=== PATIENT | female | born 1965 | race Two or more races ===

== ENCOUNTER 2019-12-30 14:24 | Emergency (ER) | payer MEDICAID, OTHER ==
[~2019-12-30] VITALS: Ht 162.6 cm; Wt 102.1 kg
[~2019-12-30 14:24] MED LIST: ZITROMAX
[2019-12-30 15:07] LABS: Basophils # (auto) 0 10 ^3/uL (0-0.2); Basophils % (auto) 0.5 % (0.0-2.0); Eosinophils # (auto) 0.1 10 ^3/uL (0-0.8); Eosinophils % (auto) 1.2 % (0.0-7.0); Hematocrit 42.3 % (36.0-46.0); Hemoglobin 14.4 g/dL (12.2-16.2); Lymphocytes # (auto) 1.4 10 ^3/uL (0.4-5.4); Lymphocytes % (auto) 21.1 % (10.0-50.0); Mean Corpuscular Hemoglobin 32.1 pg (28.0-32.0); Mean Corpuscular Volume 94.4 fL (80.0-100.0); Monocytes # (auto) 0.4 10 ^3/uL (0-1.3); Monocytes % (auto) 5.8 % (0.0-12.0); Neutrophils # (auto) 4.9 10 ^3/uL (1.6-8.6); Neutrophils % (auto) 71.4 % (37.0-80.0); Nucleated Red Blood Cells % 0.1 %; Platelet Count (auto) 243 10^3/uL (140-450); Red Blood Cells 4.48 10^6/uL (4.0-5.20); Red Cell Distribution Width 13.2 % (11.8-14.3); White Blood Cell 6.8 10^3/uL (4.4-10.8)
[2019-12-30 15:25] LABS: Albumin 3.4 g/dL (3.4-5.0); Calcium 8.7 mg/dL (8.5-10.1); Potassium 4.1 mmol/L (3.5-5.1)
[2019-12-30 15:28] LABS: Bilirubin, Total 0.3 mg/dL (0.2-1.0); Total Protein 7.7 g/dL (6.4-8.2)
[2019-12-30 15:31] LABS: BUN/Creatinine Ratio 26.7
[2019-12-30 17:32] VITALS: BP 110/76
== END 2019-12-30 17:34 | disposition home or self-care (01) ==
LOC: EDBD 14:24 → ER 14:24
DX: F41.9 Anxiety disorder, unspecified (principal); R73.9 Hyperglycemia, unspecified; Z88.1 Allergy status to other antibiotic agents; Z79.2 Long term (current) use of antibiotics
CPT/HCPCS: 36415; 80053; 84484; 85025; 93005

== ENCOUNTER 2024-01-19 17:09 | Emergency (ER) | payer MEDICAID, OTHER ==
[~2024-01-19] VITALS: Ht 152.4 cm; Wt 102.7 kg
[2024-01-19 18:27] VITALS: BP 153/75; PULSE 66; RESP 16; TEMP 98.3; O2SAT 97
[2024-01-19] MEDS ORDERED: IBUP-1455 PO (18:33)
[2024-01-19] MEDS ORDERED: CYCL-839 PO (18:33)
[2024-01-19] MEDS: CYCLOBENZAPRINE HCL 10 MG TAB PO ONE (18:52)
[2024-01-19] MEDS: KETOROLAC TROMETH 60MG/2ML VIAL IM ONE (18:52)
== END 2024-01-19 19:01 | disposition home or self-care (01) ==
LOC: ER 17:09
DX: M79.18 Myalgia, other site (principal); M54.50 Low back pain, unspecified; E11.9 Type 2 diabetes mellitus without complications; I10 Essential (primary) hypertension; Z88.1 Allergy status to other antibiotic agents; Z88.2 Allergy status to sulfonamides; V43.62XA Car passenger injured in collision with other type car in traffic accident, initial encounter; Y93.89 Activity, other specified; Y92.89 Other specified places as the place of occurrence of the external cause; Y99.8 Other external cause status
CPT/HCPCS: 96372; 99283; J1885

== ENCOUNTER 2025-02-28 17:24 | Emergency (ER) | payer MEDICAID, OTHER ==
[~2025-02-28] VITALS: Ht 149.9 cm; Wt 99.3 kg
[~2025-02-28 17:24] MED LIST changes: +CYCL-839 PO; +IBUP-1455 PO
--- NOTE | 2025-02-28 17:41 | ECG ---
[facility] Test Date: 2025-02-28 Test Time: 17:36:07 Pat Name: TJ AVENDANO Department: ER Room: Gender: F [employer]: ZOILA : 1965 Requested By: YURI KANG Order Number: [id number] Reading MD: Ronnell Lal Measurements Intervals [place] Rate: 59 P: 26 ND: 176 QRS: -7 QRSD: 102 T: 30 QT: 429 QTc: 425 Interpretive Statements Sinus rhythm Low voltage, precordial leads Abnormal R-wave progression, late transition Probable left ventricular hypertrophy Electronically Signed On 03-02-2025 22:05:29 PDT by Ronnell Lal Please click the below link to view image of tracing.
[2025-02-28] MEDS ORDERED: CEPH500C PO (18:24)
--- NOTE | 2025-02-28 18:27 | ED.PDOC ---
History of Present Illness HPI Comments 59 year old female with a Hx of UTI'S, HTN, 2x Hernia Repairs Vertigo, Cysts, and a Partial Intestine Removal presents to the ED for the c/c of Dizziness w/ associated mild Head Pressure. Pt states that she has been feeling dizzy since yesterday and has found no alleviating factors at this time. Pt notes that she recently presented to an Urgent Care and was DX with a UTI. She recently underwent hernia repair and still has soha in place. The urgent care physician was concerned for a possible wound infection. Patient denies fever or increasing wound pain or discharge. Pt denies any abdominal pain, Dysuria, Hematuria, Chest Pain, N/V/D, Flank pain or any other associated symptoms or modifiers at this time. Chief Complaint: Dizziness Time Seen by MD: 18:23 Primary Care Provider: MARION Reviewed Notes: Nurses Notes, Medications, Allergies Allergies: Coded Allergies: Amoxicillin (Verified Allergy, Unknown, 01/19/24) Sulfa Antibiotics (Verified Allergy, Unknown, 01/19/24) Tramadol (Verified Allergy, Unknown, 02/28/25) ITCHING Home Meds Active Scripts Cephalexin Monohydrate (Cephalexin) 500 Mg Cap, 1 CAP PO QID for 10 Days, #40 CAP Prov:LUCERO KEITH MD 02/28/25 Ibuprofen Micronized (Ibuprofen) 800 Mg Tab, 800 MG PO Q8HPRN PRN, #20 TAB Prov:TIMMY ADAM 01/19/24 Cyclobenzaprine Hcl (Cyclobenzaprine Hcl) 10 Mg Tab, 10 MG PO TIDPRN PRN, #15 TAB Prov:TIMMY ADAM 01/19/24 Reported Medications [Zitromax] No Conflict Check 05/21/12 Information Source: Patient Mode of Arrival: Ambulatory Severity: Moderate Timing: Hours Duration: Since onset, Hours Prehospital treatment: None Past Medical History PAST MEDICAL HISTORY: Anxiety, HTN Past Medical History (Other): Vertigo Surgical History: Cholecystectomy, Hernia Repair [employer]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 Moist mucous membranes.) Neck: Full Range of Motion, Normal Inspection Respiratory: Lungs Clear, No Accessory Muscle Use, No Respiratory Distress, Normal Breath Sounds Cardiovascular: No Edema, No JVD, Regular Rate/Rhythm Breast Exam: Deferred Gastrointestinal: Non Tender, Soft Genitalia: Deferred Pelvic: Deferred Rectal: Deferred Extremities: Normal inspection, Normal range of motion, Non-tender, No pedal edema Neurologic: Alert (Oriented x4), Normal Affect, Normal Mood, Other (Ambulatory) Cerebellar Function: NOT DONE Reflexes: NOT DONE Skin: Dry, Normal Color, Warm, Other (Midline surgical wound with soha in place appears clean, dry and intact. Left lower quadrant surgical wound with soha in place has very minimal erythema surrounding some of the soha. No discharge, tenderness or fluctuance.) Lymphatic: NOT DONE Was a procedure done? Was a procedure done?: No Differential Dx Considerations may include: Vertigo, UTI, CVA, TIA, electrolyte imbalance, hypovolemia/orthostasis, surgical wound infection, among others X-Ray, Labs, Meds, VS Vital Signs Date Time Temp Pulse Resp B/P (MAP) Pulse Ox O2 Delivery O2 Flow Rate FiO2 02/28/25 18:50 98.7 73 16 141/66 (91) 95 98.7 02/28/25 17:36 59 02/28/25 17:25 98.5 62 18 135/90 100 98.5 Lab Test 02/28/25 19:25 02/28/25 18:38 02/28/25 17:33 Range/Units Troponin I High Sensitivity < 3 L < 3 L </=34 ng/L White Blood Count 5.9 4.4-10.8 10^3/uL Red Blood Count 3.62 L 4.0-5.20 10^6/uL Hemoglobin 12.1 L 12.2-16.2 g/dL Hematocrit 35.0 L 36.0-46.0 % Mean Corpuscular Volume 96.8 80.0-100.0 fL Mean Corpuscular Hemoglobin 33.5 H 28.0-32.0 pg Mean Corpuscular Hemoglobin Concent 34.6 32.0-36.0 g/dL Red Cell Distribution Width 13.0 11.8-14.3 % Platelet Count 332 140-450 10^3/uL Mean Platelet Volume 7.0 6.9-10.8 fL Neutrophils (%) (Auto) 61.8 37.0-80.0 % Lymphocytes (%) (Auto) 25.6 10.0-50.0 % Monocytes (%) (Auto) 7.4 0.0-12.0 % Eosinophils (%) (Auto) 4.0 0.0-7.0 % Basophils (%) (Auto) 1.2 0.0-2.0 % Neutrophils # (Auto) 3.6 1.6-8.6 10 ^3/uL Lymphocytes # (Auto) 1.5 0.4-5.4 10 ^3/uL Monocytes # (Auto) 0.4 0-1.3 10 ^3/uL Eosinophils # (Auto) 0.2 0-0.8 10 ^3/uL Basophils # (Auto) 0.1 0-0.2 10 ^3/uL Nucleated Red Blood Cells 0.0 % Sodium Level 139 136-145 mmol/L Potassium Level 3.8 3.5-5.1 mmol/L Chloride Level 102 98-107 mmol/L Carbon Dioxide Level 28 20-31 mmol/L Anion Gap 9 5-15 Blood Urea Nitrogen 10 9-23 mg/dL Creatinine 0.57 0.550-1.02 mg/dL Glomerular Filtration Rate Calc 104 >90 mL/min BUN/Creatinine Ratio 17.5 10.0-20.0 Serum Glucose 83 74-106 mg/dL Calcium Level 9.6 8.7-10.4 mg/dL Urine Color Light-yellow Yellow Urine Clarity Clear Clear Urine pH 6.5 5.0-9.0 Urine Specific [place] 1.012 1.001-1.035 Urine Protein Negative Negative Urine Ketones Negative Negative Urine Blood Negative Negative /uL Urine Nitrite Negative Negative Urine Bilirubin Negative Negative Urine Urobilinogen Normal Negative mg/dL Urine Leukocyte Esterase Negative Negative /uL Urine RBC 1 0 - 4 /hpf Urine Microscopic WBC 2 0-5 /HPF Urine Squamous Epithelial Cells Few <5 /hpf Urine Bacteria None seen None Seen /hpf Urine Glucose Normal Normal mg/dL Current Medications Medications (Trade) Dose Ordered Sig/James Route Start Time Stop Time Status Last Admin Sodium Chloride 1,000 ml @ 1,000 mls/hr Q1H ONCE IV 02/28/25 18:30 02/28/25 19:29 DC 02/28/25 19:09 Meclizine HCl (Antivert Tablet) 50 mg ONCE ONCE PO 02/28/25 18:30 02/28/25 18:31 DC 02/28/25 19:04 PROCEDURE(s): HWOCT - HEAD WITHOUT CONTRAST REASON: dizzy ORDER NUMBER(s): [id number], ACCESSION NUMBER(s): [id number] EXAM: CT HEAD WITHOUT CONTRAST INDICATION: dizzy TECHNIQUE: CT of the head without intravenous contrast. Radiation Dose Information: CT Dose: CTDI volume is 55.76 mGy. Dose-length product is 893.85 mGy*cm The dose indicators for CT are the volume Computed Tomography (CT) Dose Index ( CTDIvol) and the Dose Length Product (DLP), and are measured in units of mGy and mGy-cm, respectively. These indicators are not patient dose, but values generated from the CT scanner acquisition factors. The report includes radiation exposure data for exposures received during this examination. COMPARISON: None FINDINGS: There is no evidence of acute intracranial hemorrhage, extra-axial collection, mass effect, midline shift, herniation or hydrocephalus. The ventricles, sulci and cisterns are age appropriate. The boles-white differentiation is intact. Patchy periventricular and subcortical white matter hypoattenuation is nonspecific but may be related to small vessel ischemic disease. The visualized paranasal sinuses and mastoid air cells are clear. The surrounding soft tissues and osseous structures are unremarkable. IMPRESSION: 1. No acute intracranial abnormality. HS:Y X-Ray, Labs, Meds, VS Comment 59 year old female with a Hx of UTI'S, HTN, 2x Hernia Repairs Vertigo, Cysts, and a Partial Intestine Removal presents to the ED for the c/c of Dizziness w/ associated mild Head Pressure Vitals unremarkable No focal neurologic deficit on exam. Left lower quadrant surgical wound has minimal erythema surrounding some of the soha. No tenderness, fluctuance or discharge. Rhythm strip independently interpreted by me: Sinus rhythm, rate 62, no ectopy. CT head unremarkable CBC, basic metabolic panel and troponin unremarkable. UA unremarkable Patient treated with the following in the ED: 1 L 0.9 normal saline IV bolus, Rocephin 2 g IV, meclizine 50 mg p.o. On re-evaluation, patient is neurologically intact. Vitals were stable. Hospitalization was considered, however patient had rapid improvement of symptoms with treatment in the ED, workup is essentially unremarkable, and I no longer feel hospitalization is necessary. Patient now appears stable for discharge with close outpatient follow-up with her surgeon at [place]. I will cover her for possible early wound site infection. She states she has an appointment in 2 days. Rx Keflex Time of 1ST Reevaluation: 18:53 Reevaluation 1ST: Unchanged Time of 2ND Reevaluation: 21:28 Reevaluation 2ND: Improved Patient Education/Counseling: Diagnosis, Treatment, Need For Follow Up Family Education/Counseling: No Family Present SEPSIS Sepsis Screen Date sepsis recognized/suspect: Feb 28, 2025 Time Sepsis recognized/suspect: 1724 Recent Procedure: No On Antibiotic Therapy: No Respiratory Rate >20: No Heart Rate >90: No Temp<36 C (96.8 F) or >38.3 C: No SBP <90 or MAP <65 mmHG: No New Acute Mental Status Change: No Is the patient on CPAP, BIPAP,: No Physician Orders Head Without Contrast (02/28/25 18:21) Troponin-I Hs (02/28/25 21:21) Vital Signs Date Time Temp Pulse Resp B/P (MAP) Pulse Ox O2 Delivery O2 Flow Rate FiO2 02/28/25 18:50 98.7 73 16 141/66 (91) 95 98.7 02/28/25 17:36 59 02/28/25 17:25 98.5 62 18 135/90 100 98.5 Laboratory Tests Test 02/28/25 18:38 White Blood Count 5.9 10^3/uL (4.4-10.8) Medications Medications Dose Ordered Sig/James Route Start Time Stop Time Status Last Admin Dose Admin Meclizine HCl 50 mg ONCE ONCE PO 02/28/25 18:30 02/28/25 18:31 DC 02/28/25 19:04 Sodium Chloride 1,000 ml @ 1,000 mls/hr Q1H ONCE IV 02/28/25 18:30 02/28/25 19:29 DC 02/28/25 19:09 Departure 1 Departure Time of Disposition: 21:28 Impression: Primary Impression: Vertigo Additional Impression: Surgical wound infection Disposition: 01 HOME / SELF CARE / HOMELESS Condition: Stable Additional Instructions: Your blood tests were unremarkable. Your urine test was unremarkable. Your head CT was normal. I have prescribed antibiotics to cover both a possible surgical wound infection and a possible urinary tract infection. Follow-up with your surgeon at [place] in 2 days as scheduled. Return to ER for persistent or worsening symptoms. [place] [id number] Ph: [phone] DIAGNOSTIC IMAGING Diagnostic Imaging Report : [id number] Signed PATIENT: TJ AVENDANO ACCT: [id number] UNIT: [id number] : 1965 LOC: ER ROOM / BED: / AGE / SEX: 59 / F ADM STATUS: REG ER SERVICE 20 ORDERING PHYSICIAN: LUCERO KEITH MD PROCEDURE(s): HWOCT - HEAD WITHOUT CONTRAST REASON: dizzy ORDER NUMBER(s): [id number], ACCESSION NUMBER(s): [id number] EXAM: CT HEAD WITHOUT CONTRAST INDICATION: dizzy TECHNIQUE: CT of the head without intravenous contrast. Radiation Dose Information: CT Dose: CTDI volume is 55.76 mGy. Dose-length product is 893.85 mGy*cm The dose indicators for CT are the volume Computed Tomography (CT) Dose Index (CTDIvol) and the Dose Length Product (DLP), and are measured in units of mGy and mGy-cm, respectively. These indicators are not patient dose, but values generated from the CT scanner acquisition factors. The report includes radiation exposure data for exposures received during this examination. COMPARISON: None FINDINGS: There is no evidence of acute intracranial hemorrhage, extra-axial collection, mass effect, midline shift, herniation or hydrocephalus. The ventricles, sulci and cisterns are age appropriate. The boles-white differentiation is intact. Patchy periventricular and subcortical white matter hypoattenuation is nonspecific but may be related to small vessel ischemic disease. The visualized paranasal sinuses and mastoid air cells are clear. The surrounding soft tissues and osseous structures are unremarkable. IMPRESSION: 1. No acute intracranial abnormality. HS:Y e-Prescriptions Cephalexin Monohydrate (Cephalexin) 500 Mg Cap 1 CAP PO QID for 10 Days, #40 CAP Prov: LUCERO KEITH MD 02/28/25 Discharged With: Relative Critical Care Note Critical Care Time?: No Stability Stability form required: No Heart Score Heart Score: Heart Score Response (Comments) Value History N/A 0 EKG N/A 0 Age N/A 0 Risk Factors N/A 0 Troponin N/A 0 Total 0 I personally scribed for LUCERO KEITH MD ([email or web address]) on 02/28/25 at 18:27. Electronically submitted by Aftab Rolon ([email or web address]). I personally scribed for LUCERO KEITH MD ([email or web address]) on 02/28/25 at 19:26. Electronically submitted by Aftab Rolon ([email or web address]). LUCERO KEITH MD Feb 28, 2025 18:27
[2025-02-28 18:49] LABS: Urine Protein, UAD Negative (Negative)
--- NOTE | 2025-02-28 19:01 | DVH ---
EXAM: CT HEAD WITHOUT CONTRAST INDICATION: dizzy TECHNIQUE: CT of the head without intravenous contrast. Radiation Dose Information: CT Dose: CTDI volume is 55.76 mGy. Dose-length product is 893.85 mGy*cm The dose indicators for CT are the volume Computed Tomography (CT) Dose Index (CTDIvol) and the Dose Length Product (DLP), and are measured in units of mGy and mGy-cm, respectively. These indicators are not patient dose, but values generated from the CT scanner acquisition factors. The report includes radiation exposure data for exposures received during this examination. COMPARISON: None FINDINGS: There is no evidence of acute intracranial hemorrhage, extra-axial collection, mass effect, midline s hift, herniation or hydrocephalus. The ventricles, sulci and cisterns are age appropriate. The boles-white differentiation is intact. Patchy periventricular and subcortical white matter hypoattenuation is nonspecific but may be related to small vessel ischemic disease. The visualized paranasal sinuses and mastoid air cells are clear. The surrounding soft tissues and osseous structures are unremarkable. IMPRESSION: 1. No acute intracranial abnormality. HS:Y
[2025-02-28] MEDS: MECLIZINE HCL 25 MG TAB PO ONE (19:04)
[2025-02-28] MEDS: SODIUM CHLORIDE 0.9% 1,000 ML IV ONE (19:09)
[2025-02-28 19:11] LABS: Hematocrit 35.0 % (36.0-46.0); Hemoglobin 12.1 g/dL (12.2-16.2); Mean Corpuscular Hemoglobin 33.5 pg (28.0-32.0); Mean Corpuscular Volume 96.8 fL (80.0-100.0); Nucleated Red Blood Cells % 0.0 %
[2025-02-28 19:22] LABS: Chloride 102 mmol/L (98-107); Potassium 3.8 mmol/L (3.5-5.1); Sodium 139 mmol/L (136-145)
[2025-02-28 19:23] LABS: Anion Gap 9 (5-15); Calcium 9.6 mg/dL (8.7-10.4); Carbon Dioxide 28 mmol/L (20-31)
[2025-02-28 19:28] LABS: BUN/Creatinine Ratio 17.5 (10.0-20.0); Blood Urea Nitrogen 10 mg/dL (9-23); Glucose 83 mg/dL (74-106)
[2025-02-28] MEDS: cefTRIAXone 2GM/50ML D5W 50 ML IV ONE (21:30)
[2025-02-28 21:31] VITALS: BP 108/85; PULSE 70; RESP 18; TEMP 98.6; O2SAT 96
[2025-02-28] MEDS: ONDANSETRON HCL 4 MG/2 ML VIAL IV ONE (21:31)
== END 2025-02-28 21:58 | disposition home or self-care (01) ==
LOC: ER 17:24
DX: T81.41XA Infection following a procedure, superficial incisional surgical site, initial encounter (principal); R42 Dizziness and giddiness; I10 Essential (primary) hypertension; F41.9 Anxiety disorder, unspecified; Z98.890 Other specified postprocedural states; Z90.49 Acquired absence of other specified parts of digestive tract; Z88.5 Allergy status to narcotic agent; Z88.2 Allergy status to sulfonamides; Z88.0 Allergy status to penicillin; Z87.440 Personal history of urinary (tract) infections; Z79.899 Other long term (current) drug therapy; Y83.9 Surgical procedure, unspecified as the cause of abnormal reaction of the patient, or of later complication, without mention of misadventure at the time of the procedure
CPT/HCPCS: 36415; 70450; 80048; 81001; 82947; 84484; 85025; 93005; 96361; 96365; 96375; 99285; J0696; J2405; J7030; J8597